=== PATIENT | male | born 1980 | race Caucasian/White ===

== ENCOUNTER 2022-09-23 08:15 | Outpatient (CLI) | payer OTHER, SELFPAY | END 2022-09-23 08:16 | disposition home or self-care (01) | LOC: NFLDREF 09-24 08:41 | PROVIDERS: PCP Physician Assistant; Referring Provider Physician Assistant; Visit Provider Physician Assistant | DX: R19.7 Diarrhea, unspecified (principal) | CPT/HCPCS: 87045; 87046; 87427; 87493 ==